=== PATIENT | female | born 1985 | race Caucasian/White ===

== ENCOUNTER 2016-12-21 12:47 | Emergency (ER) | payer MEDICAID ==
[2016-12-21 12:53] VITALS: TEMP 99.5
--- NOTE | 2016-12-21 13:54 | EDPHY ---
H & P Time Seen by Provider: 12/21/16 13:09 HPI/ROS: CHIEF COMPLAINT: "I think I have a really large hemorrhoid " HISTORY OF PRESENT ILLNESS: 31-year-old immunocompetent female history of chronic hemorrhoids since high school, states that yesterday she had a large bowel movement and felt more pain than usual. No abdominal pain. No nausea no vomiting. Pain was at her anus. PHYSICAL EXAM (Prior to examination, patient consented to physical exam, hands were washed and my usual and customary physical exam procedures followed) 1) GENERAL: Well-developed, well-nourished, alert and oriented. Appears to be in no acute distress. 2) HEAD: Normocephalic 3) HEENT: sclera anicteric 4) LUNGS: [Breathing comfortably. [5) (exam with female nurse Yovana at bedside): Patient has a non thrombosed hemorrhoid at the 7 o'clock position, tender. There is no evidence of infection or perianal abscess or cellulitis. Constitutional: Initial Vital Signs Temperature (C) 37.5 C 12/21/16 12:51 Heart Rate 87 12/21/16 12:51 Respiratory Rate 18 12/21/16 12:51 Blood Pressure 112/63 12/21/16 12:51 O2 Sat (%) 97 12/21/16 12:51 O2 Delivery Mode Room Air Allergies/Adverse Reactions: No Known Allergies Allergy (Unverified 12/21/16 12:54) Home Medications: Medication Instructions Recorded Hydrocortisone Acetate [Anucort-Hc] 25 mg RC DAILY #10 supp.rect 12/21/16 Lidocaine 2% Viscous 5 ml MM BID #100 ml 12/21/16 MDM/Departure - MDM ED Course/Re-evaluation: Patient has no evidence of thrombosed hemorrhoid, no evidence of perianal abscess. Doubt perirectal abscess. I recommend follow up with on-call surgery on a nonemergent basis. Also [facility]. The meantime we discussed supportive therapy, we discussed topical anesthetics which I will prescribe her. Usual and customary precautions and instructions provided - Depart Disposition: Home, Routine, Self-Care Clinical Impression: Acute hemorrhoid Condition: Good Instructions: Hemorrhoids (ED) Additional Instructions: Return to the ER if you develop new or worsening symptoms, if you develop abdominal pain, fever, chills or any other symptoms that concern you. Prescriptions: Hydrocortisone Acetate [Anucort-Hc] 25 mg RC DAILY #10 supp.rect Lidocaine 2% Viscous 5 ml MM BID #100 ml Referrals: Zeke García MD [Medical Doctor] - 1-2 days without fail (Dr. García is a surgeon) [facility],. [Clinic] - 1-2 days without fail
[2016-12-21 14:25] VITALS: BP 109/62; PULSE 76; RESP 16; O2SAT 99
== END 2016-12-21 14:25 | disposition home or self-care (01) ==
DX: K64.9 Unspecified hemorrhoids (principal)